=== PATIENT | female | born 1965 | race Caucasian/White ===

== ENCOUNTER 2019-05-17 05:47 | Inpatient (IN) | payer OTHER, MEDICAID ==
[~2019-05-17 05:47] MED LIST: BUPIVACAINE 0.5% (SDV) 30 ML, morphine SULFATE (PF) 8 MG, EPINEPHrine 0.3 MG, KETOROLAC... IRR; CEFAZOLIN 2 GM/50 ML (PMX) 50 ML IVPB; TRANEXAMIC ACID 1GM/100ML(PMX) 100 ML IVPB
[2019-05-17] MEDS: DEXAMETHASONE 1 MG TAB PO (06:22)
[2019-05-17] MEDS: GABAPENTIN 300 MG CAP PO ×2 (06:22→20:32)
[2019-05-17] MEDS ORDERED: CA CHLORIDE (GM) 10% 10 ML INJ (06:52)
[2019-05-17] MEDS ORDERED: THROMBIN 5000 UNIT (RECOTHROM) VIAL (06:52)
[2019-05-17] MEDS ORDERED: TRANEXAMIC ACID 1GM/100ML(PMX) 100 ML (06:52)
[2019-05-17] MEDS: POLYMYXIN/BACITRACIN 1L IRRIG (06:52)
[2019-05-17] MEDS ORDERED: IPRATROPIUM (NEB) 0.5 MG/2.5 ML AMP HHN (07:00)
[2019-05-17] MEDS ORDERED: ONDANSETRON 4 MG INJ IV ×3 (07:00→09:30)
[2019-05-17] MEDS ORDERED: LABETALOL HCL 20MG INJ IV (07:00)
[2019-05-17] MEDS ORDERED: MIDAZOLAM 1 MG/ML 2 ML INJ (07:00)
[2019-05-17] MEDS ORDERED: NALBUPHINE HCL (10 MG/1 ML) INJ IV (07:00)
[2019-05-17] MEDS ORDERED: MEPERIDINE 25 MG INJ IV (07:00)
[2019-05-17] MEDS ORDERED: DEXAMETHASONE 4 MG/ML 5 ML INJ (07:00)
[2019-05-17] MEDS ORDERED: NALOXONE (0.4 MG/ML) INJ IV (07:00)
[2019-05-17] MEDS ORDERED: TRIMETHOBENZAMIDE 100 MG/ML VIAL IM ×2 (07:00)
[2019-05-17] MEDS ORDERED: MIDAZOLAM 1 MG/ML 2 ML INJ IV (07:00)
[2019-05-17] MEDS ORDERED: ZOLPIDEM 5 MG TAB PO ×2 (07:00→09:30)
[2019-05-17] MEDS ORDERED: EPHEDrine 25 MG/5 ML SYG IV (07:00)
[2019-05-17] MEDS ORDERED: NEOSTIGMINE 3 MG/3 ML SYRINGE (07:00)
[2019-05-17] MEDS ORDERED: ROCURONIUM 50 MG INJ (07:00)
[2019-05-17] MEDS ORDERED: ALBUTEROL 0.083% (NEB) 2.5 MG/3 ML AMP HHN (07:00)
[2019-05-17] MEDS ORDERED: FENTAnyl 50 MCG/ML VIAL (07:00)
[2019-05-17] MEDS ORDERED: GLYCOPYRROLATE 0.4 MG INJ (07:00)
[2019-05-17] MEDS ORDERED: HYDROmorphONE 1 MG/5 ML IV SYRINGE IV ×3 (07:00)
[2019-05-17] MEDS ORDERED: SOD CHLORIDE 0.9% 100 ML, TRANEXAMIC ACID 3,000 MG IRR (07:00)
[2019-05-17] MEDS ORDERED: DIPHENHYDRAMINE 50 MG INJ IV ×2 (07:00)
[2019-05-17] MEDS ORDERED: HYDROmorphONE 0.5 MG/0.5 ML SYG IV ×2 (07:00)
[2019-05-17] MEDS ORDERED: CEFAZOLIN 1 GM INJ (07:00)
[2019-05-17] MEDS ORDERED: FENTAnyl 50 MCG/ML VIAL IV ×3 (07:00)
[2019-05-17] MEDS ORDERED: PROPOFOL 20 ML (07:00)
[2019-05-17] MEDS ORDERED: ONDANSETRON 4 MG INJ (07:00)
[2019-05-17] MEDS ORDERED: hydrALAzine 20 MG INJ IV (07:00)
[2019-05-17] MEDS ORDERED: morphine SULFATE/PF (10 MG/10 ML) INJ (07:05)
[2019-05-17] MEDS ORDERED: NACL 0.9% 3 ML SYG IV (09:30)
[2019-05-17] MEDS ORDERED: oxyCODONE 5 MG TAB PO ×2 (09:30)
[2019-05-17] MEDS ORDERED: HYDROmorphONE 1 MG/ML SYG IV (09:30)
[2019-05-17] MEDS ORDERED: MAGNESIUM HYDROXIDE 30ML CUP PO (09:30)
[2019-05-17 09:52] LABS: ADD MAN DIFF? NO
[2019-05-17 09:58] LABS: BASOPHILS % 0.5 % (0.0-2.0); EOSINOPHILS # 0.1 10^3/ul (0.0-0.5); EOSINOPHILS % 0.8 % (0.0-7.0); HEMATOCRIT 32.2 % (37.0-47.0); HEMOGLOBIN 10.4 g/dl (12.0-16.0); LYMPHOCYTES % 16.8 % (15.0-51.0); MEAN CORPUSCULAR HEMOGLOBIN 29.7 pg (29.0-33.0); MEAN CORPUSCULAR HGB CONC 32.3 g/dl (32.0-37.0); MEAN PLATELET VOLUME 9.6 fl (7.4-10.4); MONOCYTE # 0.1 10^3/ul (0.3-0.9); MONOCYTES % 1.8 % (0.0-11.0); NEUTROPHIL # 4.9 10^3/ul (1.6-7.5); NEUTROPHILS % 79.3 % (39.0-77.0); PLATELET COUNT 205 10^3/UL (140-415); RED CELL DISTRIBUTION WIDTH 12.9 % (11.5-14.5)
[2019-05-17 09:58] LABS: WHITE BLOOD COUNT 6.2 10^3/ul (4.8-10.8)
[2019-05-17] MEDS: CEFAZOLIN 1 GM/50 ML (PMX) 50 ML IVPB ×2 (10:16→19:00)
[2019-05-17] MEDS: LACTATED RINGER'S 1,000 ML IV ×2 (10:16→22:35)
[2019-05-17] MEDS: ACETAMINOPHEN 1000MG/100ML IV 100 ML IVPB ×2 (10:23→18:20)
[2019-05-17] MEDS: DEXAMETHASONE 2 MG TAB PO ×2 (13:08→18:22)
[2019-05-17] MEDS: DIPHENHYDRAMINE 50 MG INJ IV (20:32)
[2019-05-17] MEDS: SENNA/DOCUSATE NA (8.6MG/50MG) TAB PO (20:32)
[2019-05-18] MEDS: DEXAMETHASONE 2 MG TAB PO ×2 (00:34→05:44)
[2019-05-18] MEDS: CEFAZOLIN 1 GM/50 ML (PMX) 50 ML IVPB (00:35)
[2019-05-18] MEDS: ACETAMINOPHEN 1000MG/100ML IV 100 ML IVPB (02:44)
[2019-05-18 05:18] LABS: ADD MAN DIFF? NO
[2019-05-18 05:22] LABS: WHITE BLOOD COUNT 10.1 10^3/ul (4.8-10.8)
[2019-05-18 05:22] LABS: HEMATOCRIT 31.3 % (37.0-47.0); HEMOGLOBIN 10.1 g/dl (12.0-16.0); LYMPHOCYTES # 0.7 10^3/ul (0.8-2.9); LYMPHOCYTES % 7.3 % (15.0-51.0); MEAN CORPUSCULAR HEMOGLOBIN 29.6 pg (29.0-33.0); MEAN CORPUSCULAR HGB CONC 32.3 g/dl (32.0-37.0); MEAN CORPUSCULAR VOLUME 91.8 fl (82.0-101.0); MEAN PLATELET VOLUME 9.6 fl (7.4-10.4); MONOCYTE # 0.6 10^3/ul (0.3-0.9); NEUTROPHIL # 8.8 10^3/ul (1.6-7.5); NEUTROPHILS % 86.4 % (39.0-77.0); PLATELET COUNT 227 10^3/UL (140-415); RED BLOOD COUNT 3.41 10^6/ul (4.20-5.40); RED CELL DISTRIBUTION WIDTH 12.9 % (11.5-14.5)
[2019-05-18] MEDS: LACTATED RINGER'S 1,000 ML IV (06:01)
[2019-05-18] MEDS: ASPIRIN (EC) 325 MG TAB PO (09:14)
[2019-05-18] MEDS: SENNA/DOCUSATE NA (8.6MG/50MG) TAB PO (09:14)
[2019-05-18] MEDS: oxyCODONE 5 MG TAB PO ×2 (13:09→17:37)
[2019-05-18] MEDS ORDERED: ZOLPIDEM 5 MG TAB PO (21:00)
[2019-05-19] MEDS ORDERED: MAGNESIUM HYDROXIDE 30ML CUP PO (21:00)
== END 2019-05-18 19:32 | disposition home or self-care (01) | DRG 470 ==
LOC: REC 05:47 → MS1 11:45
PROVIDERS: Orthopaedic Surgery
PROC: 0SRB04Z Replacement of Left Hip Joint with Ceramic on Polyethylene Synthetic Substitute, Open Approach (ICD-10-PCS; principal; 2019-05-17 06:58)
DX: M13.852 Other specified arthritis, left hip (principal); Q65.89 Other specified congenital deformities of hip
CPT/HCPCS: 72170; 73530; 85025; 86999; 87086; 88304; 88311; 97116; 97162; 97530